=== PATIENT | female | born 2005 | race Caucasian/White ===

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

== ENCOUNTER 2024-12-17 05:31 | Observation (INO) | payer OTHER, SELFPAY ==
[2024-12-17] MEDS ORDERED: Ketorolac Tromethamine 30 MG (1 mL) VIAL ONE (06:49)
[2024-12-17] MEDS ORDERED: Ondansetron PF 4 MG/2 ML Vial ONE (06:49)
[2024-12-17] MEDS ORDERED: Haloperidol Lactate 5 MG/ML VIAL ONE (07:30)
[2024-12-17 07:39] LABS: #Basophils 0.03 10x3/uL (0.0-0.2); #Eosinophils Less than 0.03 10x3/uL (0.0-0.7); %Basophils 0.2 % (0.0-1.0); %Lymphocytes 8.4 % (28.0-48.0); %Monocytes 9.7 % (0.0-4.0); %Neutrophils 81.3 % (31.0-61.0); Hematocrit 50.8 % (36.0-47.0); Hemoglobin 17.9 g/dL (12.0-16.0); Mean Corpuscular HGB CONC 35.2 g/dL (32.0-36.0); Mean Corpuscular Hemoglobin 28.7 pg (25.0-35.0); Mean Corpuscular Volume 81.5 fL (78.0-98.0); Mean Platelet Volume 10.4 fL (7.4-10.4); Platelet Count 388 10x3/uL (130-400); RBC Distribution Width 14.4 % (11.5-14.5); Red Blood Cell (RBC) Count 6.23 mill/uL (4.00-5.20)
[2024-12-17] MEDS ORDERED: Morphine 4 MG/ML VIAL ONE (07:56)
[2024-12-17] MEDS ORDERED: Sodium Chloride 0.9% 100 ML ONE (08:01)
[2024-12-17] MEDS ORDERED: Piperacillin/Tazobactam 3.375 GM VIAL ONE (08:01)
[2024-12-17 08:28] LABS: Amphetamine Not Detected (NotDetected); Barbiturates Screen Not Detected (NotDetected); Benzodiazepine Screen Not Detected (NotDetected); Cocaine Metabolite Screen Not Detected (NotDetected); Methadone Not Detected (NotDetected); Methamphetamine Not Detected (NotDetected); Opiate Screen Not Detected (NotDetected); Oxycodone Screen Not Detected (NotDetected); Phencyclidine (PCP) Not Detected (NotDetected); THC/Cannabinoid Screen Detected (NotDetected); Tricyclic Screen Not Detected (NotDetected)
[2024-12-17 08:39] LABS: Pregnancy Test - Urine (BHCG) Negative (Negative); Pregu Control Background? CLEAR/WHITE (CLR/WHITE); Pregu Control Bar Appear? YES (CONTROL BAR)
[2024-12-17 08:53] LABS: Bilirubin 1+ (Negative); Blood, Urine 3+ (Negative); CAUTI Indications for Culture Pelvic or flank pain; Clarity Extra Turbid (Clear); Glucose, Urine (Dipstick) 30 mg/dL (Negative); Ketone, Urine Greater than 150 mg/dL (Negative); Leukocyte Negative Leu/uL (Negative); Nitrite Negative (Negative); Protein, Urine (Dipstick) Greater than 600 mg/dL (Neg-Trace); RBC/HPF 21-50 HPF (0-3); Specific Gravity, Urine 1.043 (1.002-1.036); Urobilinogen 3 mg/dL (Less than 2); WBC/HPF 0-3 HPF (0-3); pH, Urine 6.5 (5.0-9.0)
[2024-12-17 09:04] LABS: Bacteria/HPF 1+ HPF (None Seen); Urine Culture Reflex No No
[2024-12-17 09:06] LABS: Specific Gravity 1.043 (1.002-1.036)
[2024-12-17 09:14] LABS: Anion Gap 19 mmol/L (10-20); BUN (Urea Nitrogen) 22 mg/dL (7.0-18.7); Calc. Creatinine Clearance 0 mL/min (70-130); Calcium 9.1 mg/dL (7.8-10.44); Carbon Dioxide 13 mmol/L (22-29); Chloride 109 mmol/L (98-107); Estimated GFR 115; Glucose 116 mg/dL (70-105); Potassium 3.7 mmol/L (3.5-5.1); Sodium 137 mmol/L (136-145)
[2024-12-17] MEDS ORDERED: Acetaminophen 325 MG TAB PO PRN (11:00)
[2024-12-17] MEDS ORDERED: Ibuprofen 600 MG TAB PO PRN (11:17)
[2024-12-17 12:44] VITALS: BMI 17.4
[2024-12-17] MEDS: Lactated Ringer's 1,000 ML IV SCH (13:32)
[2024-12-17] MEDS: Capsaicin 0.025% Cream 60 gm Tube TOP SCH (14:02)
[2024-12-17] MEDS ORDERED: Iopamidol-370 76% 500 ML MDV (1 ML CHARGE) ONE (15:12)
[2024-12-17] MEDS ORDERED: GASTROGRAFIN 30 ML BOT ONE (15:12)
[2024-12-17] MEDS: Ondansetron PF 4 MG/2 ML Vial IVP PRN (18:16)
[2024-12-17] MEDS: Melatonin 3 MG TAB PO SCH (22:21)
[2024-12-18 07:36] LABS: Anion Gap 14 mmol/L (10-20); BUN (Urea Nitrogen) 8 mg/dL (7.0-18.7); Calc. Creatinine Clearance 130 mL/min (70-130); Calcium 8.6 mg/dL (7.8-10.44); Carbon Dioxide 20 mmol/L (22-29); Chloride 108 mmol/L (98-107); Estimated GFR 138; Glucose 91 mg/dL (70-105); Potassium 3.4 mmol/L (3.5-5.1); Sodium 139 mmol/L (136-145)
[2024-12-18 07:49] LABS: #Basophils Less than 0.03 10x3/uL (0.0-0.2); #Eosinophils Less than 0.03 10x3/uL (0.0-0.7); %Basophils 0.3 % (0.0-1.0); %Monocytes 11.5 % (0.0-4.0); %Neutrophils 62.9 % (31.0-61.0); Hematocrit 35.7 % (36.0-47.0); Hemoglobin 12.2 g/dL (12.0-16.0); Mean Corpuscular HGB CONC 34.2 g/dL (32.0-36.0); Mean Platelet Volume 10.2 fL (7.4-10.4); Platelet Count 185 10x3/uL (130-400); RBC Distribution Width 14.1 % (11.5-14.5)
[2024-12-18] MEDS: Potassium Chloride 20 MEQ in Premix 1 BAG IVPB SCH (09:11)
[2024-12-18] MEDS: Ondansetron ODT 4 MG TAB PO PRN (11:07)
[2024-12-18 15:48] VITALS: BP 138/87; TEMP 98.5
== END 2024-12-18 16:48 | disposition home or self-care (01) ==
LOC: ERS 05:31 → T4-A 10:28
PROVIDERS: ADMIT Student in an Organized Health Care Education/Training Program; ATTEND Student in an Organized Health Care Education/Training Program
DX: J98.2 Interstitial emphysema (principal); R11.11 Vomiting without nausea; F41.9 Anxiety disorder, unspecified; F32.A Depression, unspecified; E87.6 Hypokalemia; F12.90 Cannabis use, unspecified, uncomplicated; Z79.1 Long term (current) use of non-steroidal anti-inflammatories (NSAID); Z79.899 Other long term (current) drug therapy
CPT/HCPCS: 36415; 71045; 71046; 71260; 74177; 80048; 80306; 81001; 81025; 85025; 87400; 96375; 96376; G0378; J1630; J1885; J2270; J2405; J2543; J3480; J7120; Q0162; Q9963; Q9967